=== PATIENT | female | born 1970 | race Caucasian/White ===

== ENCOUNTER 2020-05-03 07:40 | Outpatient (CLI) | payer OTHER ==
[2020-05-04 14:02] LABS: SARS-CoV-2 MS2 Positive; SARS-CoV-2 N Gene Negative; SARS-CoV-2 S Gene Negative; SARS-CoV-2 by NAA Not Detected (NotDetected); SARS-CoV-2 orf1ab Negative
== END 2020-05-03 07:41 | disposition home or self-care (01) ==
LOC: LABBT 07:40
PROVIDERS: ATTEND Internal Medicine Gastroenterology
DX: Z20.828 Contact with and (suspected) exposure to other viral communicable diseases (principal)
CPT/HCPCS: 87635; U0003

== ENCOUNTER 2020-06-21 07:14 | Outpatient (CLI) | payer OTHER ==
[2020-06-22 15:21] LABS: SARS-CoV-2 MS2 Positive; SARS-CoV-2 N Gene Negative; SARS-CoV-2 S Gene Negative; SARS-CoV-2 by NAA Not Detected (NotDetected); SARS-CoV-2 orf1ab Negative
== END 2020-06-21 07:15 | disposition home or self-care (01) ==
LOC: LABBT 07:14
PROVIDERS: ATTEND Neurological Surgery
DX: G95.0 Syringomyelia and syringobulbia (principal); Z20.828 Contact with and (suspected) exposure to other viral communicable diseases
CPT/HCPCS: 87635; U0003

== ENCOUNTER 2020-06-26 10:12 | Day surgery (SDC) | payer OTHER ==
[2020-06-24 13:19] VITALS: BMI 36.2
[~2020-06-26 10:12] MED LIST: Iopamidol 370 76% 100 ML VIAL ONE
[2020-06-26] MEDS ORDERED: Heparin 10,000 UNITS/ 10 ML VIAL ONE (10:53)
[2020-06-26] MEDS ORDERED: Fentanyl 100 MCG/2 ML VIAL ONE (11:40)
--- NOTE | 2020-07-02 15:14 | CCLSPC ---
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 INDICATION: Pain, numbness, and weakness. DIAGNOSIS: Rule out spinal dural AV fistula. PROCEDURE: Selective spinal angiography bilaterally from T8 through L2. ANESTHESIA: Local. TECHNIQUE: The patient was brought into the angiogram suite and placed on table in a supine position. Both groins were prepped and draped in the usual sterile fashion. A 5-[place] micropuncture set was used to gain access to the right common femoral artery. Using a Seldinger technique, the needle was removed, and a 5-[place] sheath was placed. A 5-[place] [employer] spinal catheter was placed over a [employer] guidewire and placed into the aortic arch. There was selective catheterization of each spinal artery on the left and the right from T8 through L2. This area was targeted based on imaging performed noninvasively. After each angiogram was performed, the catheter was removed, hemostasis was maintained with manual compression. The procedure came to an end without any known complication. IMPRESSION: The patient underwent a selective spinal angiography from T8 through L2 bilaterally. The T8 arteries on the left and the right were normal. The T9 arteries on the left and the right were normal. The T10 arteries on the left and the right were normal. The T11 arteries on the left and the right were normal. The T12 arteries on the left and the right were normal. The L1 artery on the left and the right was normal. The arteries at L2 bilaterally were also normal. There is no evidence for dural AV fistula. The patient spinal angiogram along the selected segments was normal. Job ID: [id number]
== END 2020-06-26 14:47 | disposition home or self-care (01) ==
LOC: CCL 10:12
PROVIDERS: ATTEND Neurological Surgery
PROC: B3101ZZ Fluoroscopy of Thoracic Aorta using Low Osmolar Contrast (ICD-10-PCS; principal; 2020-06-26)
DX: I77.0 Arteriovenous fistula, acquired (principal); Z79.1 Long term (current) use of non-steroidal anti-inflammatories (NSAID); Z79.899 Other long term (current) drug therapy; Z88.0 Allergy status to penicillin; Z88.1 Allergy status to other antibiotic agents; Z88.2 Allergy status to sulfonamides; Z88.5 Allergy status to narcotic agent
CPT/HCPCS: 36215; 75705; 76942; J1644; J3010; Q9967